=== PATIENT | female | born 1935 | race Caucasian/White ===

== ENCOUNTER 2017-01-30 15:33 | Emergency (ER) | payer MEDICARE ==
[2017-01-30 15:41] VITALS: BP 158/85; PULSE 101; RESP 14; O2SAT 96
--- NOTE | 2017-01-30 15:44 | ED.REPORT ---
HPI-Chest Pain 40 and Over Date of Service Jan 30, 2017 ED Provider: Dr. Ibrahim An 81 year old female with a history of undiagnosed baseline chronic abdominal pain presents to the ED via EMS complaining of elevated heart rate onset 1300 today. Her heart rate did not gone down after an hour since onset, so the patient decided to call EMS. Per EMS EKG the patient was tachycardic with heart rate of 113 en route. Per EMS report, the patient was Afib with RVR and a heart rate in the 100-170's en route. EMS administered O2 and 20mg diltiazem. She denies any pain ,nausea, diaphoresis, or anxiousness. She denies any feelings of heaviness or significant discomfort in her chest at this time. Additionally, she reports baseline intermittent feelings of heat and flushed red face that onset recently.The patient does have an inhaler and an emergency albuterol inhaler that she has not used in a few days. She takes a baby aspirin, but reports no history of heart problems and does not take any blood pressure or heart medications. The patient reports that they do not do a great job at staying well hydrated, but report that they have had two glasses of water this morning. Nursing Notes Stated Complaint: AFIB WITH RVR Chief Complaint: Chest Pain Nursing Notes Reviewed: Yes Allergies: Coded Allergies: codeine (Unverified Allergy, Intermediate, 01/30/17) Scheduled Metoprolol Succinate ER (Metoprolol Succinate ER) 25 Mg Tab.er.24h 25 MG PO DAILY General Time Seen by MD: 15:43 Chief Complaint Other (elevated heart rate) Hx Obtained From: Patient, EMS Arrived By: Ambulance Sudden in Onset?: Yes Onset Occurred: 1 - 4 hours ago (1300 today) Symptom Duration: Duration unknown Recent Healthcare: No recent doctor visit Similar Sx Previous: No Past Medical History Past Medical History baseline undiagnosed chronic abdominal pain Past Surgical History none reported Social History Other Social History: Good social support Ambulatory Status Independent Review of Systems Review of Systems Note: elevated heart rate. Denies chest pain or any other pain. Denies anxiousness. Cardiovascular: Denies: Chest pain (denies feelings of heaviness or signifigant discomfort in chest.) GI: Denies: Nausea Skin: Denies Diaphoresis Complete sys rev & neg: except as marked. Physical Exam Initial Vital Signs Vital Signs (First) Date Time Temp Pulse Resp B/P Pulse Ox O2 Delivery O2 Flow Rate FiO2 01/30/17 15:41 36.3 101 14 158/85 96 Room Air Initial VS: Reviewed Respiratory / Chest: Atraumatic, Breath sounds NL, Breath sounds = bilat, No respiratory distress, No rales, No rhonchi, No wheezing Cardiovascular: Regular rhythm, No murmurs Heart Rate / Rhythm: Positive: Tachycardia (borderline tachycarida with rate of 93) Abdomen: Atraumatic, Soft, Non-tender Neck: Atraumatic, Full range of motion Back: Atraumatic, Full range of motion Lower Extremity / Pelvis / MS: Atraumatic, No swelling Skin: Atraumatic, Color NL, Warm, Dry Neurologic: Oriented X3, Speech NL Head / Eyes: Atraumatic, Normocephalic, PERRL, EOMI ENT: Atraumatic, Mucous membranes moist Upper Extremity / MS: Atraumatic Wrist / Hand: Atraumatic, Full range of motion Ankle / Foot: Atraumatic, Full range of motion Interpretation & Diagnostics Lab Results Interpretation Result Diagram: 01/30/17 1725 01/30/17 1725 Test 01/30/17 16:20 01/30/17 17:25 Urine Color Yellow (YELLOW) Urine Appearance Clear (CLEAR,HAZY) Urine pH 7.5 (5.0-8.0) Urine Specific Helper 1.005 (1.003-1.035) Urine Protein Negativemg/dL (NEG,TRACE) Urine Glucose (UA) Negativemg/dL (NEGATIVE) Urine Ketones Negativemg/dL (NEGATIVE) Urine Occult Blood Negative (NEGATIVE) Urine Nitrite Negative (NEGATIVE) Urine Bilirubin Negative (NEGATIVE) Urine Urobilinogen Normalmg/dL (NORMAL) Urine Leukocyte Esterase Negative (NEGATIVE) Urine RBC 0-2/hpf (0-2) Urine WBC 0-5/hpf (0-5) Urine Epithelial Cells Occasional/hpf (NONE-MOD) Urine Crystals None seen (NONE SEEN) Urine Bacteria Few/hpf (NONE-FEW) Urine Hyaline Casts None/lpf (NONE) Urine Granular Casts None seen (NONE SEEN) Urine Waxy Casts None seen (NONE SEEN) Urine Red Blood Cell Casts None seen (NONE SEEN) Urine White Blood Cell Casts None seen (NONE SEEN) Urine Mucus None seen (None Seen) Urine Trichomonas None seen (NONE SEEN) Urine Yeast None (NONE SEEN) Urinalysis Comment None Hold Urine Received (Received) White Blood Count 7.9th/mm3 (3.8-10.1) Red Blood Count 4.92mil/mm3 (3.90-5.20) Hemoglobin 15.5g/dL (12.0-15.6) Hematocrit 46.1% (35.0-46.0) Mean Corpuscular Volume 93.7fL (81-100) Mean Corpuscular Hemoglobin 31.5pg (27.0-35.0) Mean Corpuscular Hemoglobin Concent 33.6% (32.0-37.0) Red Cell Distribution Width 13.2% (12.3-15.4) Platelet Count 213bil/L (150-400) Neutrophils (%) (Auto) 70.6% (40-74) Lymphocytes (%) (Auto) 16.7% (14-46) Monocytes (%) (Auto) 8.8% (4-12) Eosinophils (%) (Auto) 3.1% (0-5) Basophils (%) (Auto) 0.3% (0-3) Sodium Level 140mEq/L (134-144) Potassium Level 4.2mEq/L (3.5-5.2) Chloride Level 104mEq/L (97-108) Carbon Dioxide Level 21mmol/L (18-29) Blood Urea Nitrogen 12mg/dL (8-27) Creatinine 0.78mg/dL (0.57-1.00) Estimat Glomerular Filtration Rate 101mL/min (>59) Glucose Level 106mg/dL (60-99) Calcium Level 10.1mg/dL (8.5-10.1) Magnesium Level 2.2mg/dL (1.6-2.6) Total Bilirubin 0.5mg/dL (0.0-1.2) Aspartate Amino Transf (AST/SGOT) 35U/L (0-50) Alanine Aminotransferase (ALT/SGPT) 31U/L (0-32) Alkaline Phosphatase 88U/L (25-165) Troponin T < 0.010ug/L (0.0-0.011) Total Protein 6.6g/dL (6.4-8.4) Albumin 4.3g/dL (3.4-5.0) ECG Interpretation ECG Interpretation: Rate is 94. Sinus rhythm. No ST changes. Time: 15:45 Interpreted by: ED physician X-Ray Chest Interpretation Chest Xray Interpretation: IMPRESSION: No acute disease. Diffuse scarring/atelectasis Dictated by: Kwan Concepcion M.D. on 01/30/2017 at 16:22 Approved by: Kwan Concepcion M.D. on 01/30/2017 at 16:23 View: Portable, 1 view Re-Eval/Medical Decision Med Decision/Clinical Course 81-year-old female with no known history of atrial fibrillation presents after EMS reported A. fib with heart rate up to 170 that was successfully treated and resolved with diltiazem IV. Patient has been sinus rhythm since arriving at the ED. She has not had any chest pain. Troponin is negative. Metoprolol succinate 25 mg was given to the patient shortly after arrival and heart rate slowed from the 110s down to the 70s and 80s. Case discussed with Dr. Celeste who recommends that we continue the metoprolol 25 mg daily and have her follow-up with PCP. He did not feel at cardiology evaluation was needed urgently at this time. He recommended a full aspirin a day but given that this was the first and a very brief episode of atrial fibrillation (unconfirmed by our tests here, only reported by EMS), full anticoagulation is deferred to PCP after further investigation such as with Holter monitor. Chads2 score of 1 for age greater then 75. Patient feeling much better and comfortable going home. Patient and family understand and agree with the plan. Source of Hx: Old records, EMS Time of Eval: 16:24 Re-Evaluation/Progress Note: Rechecked patient, explained plan to administer diltiazem in the ED. Patient understands and agrees with the plan. Time of Eval: 17:48 Re-Evaluation/Progress Note: Rechecked patient. She reports no chest pain currently. She feels warm and has a flushed face, reporting that she has recently started experiencing these two symptoms together. She reports that she has not been put on any new medication recently. Time of Eval: 18:52 Re-Evaluation/Progress Note: Rechecked patient, explained test results, diagnosis and plan for discharge. Patient understands and agrees with the plan. Consultation : Referral / Consult Name: Chung Celeste MD Call Returned at: 18:21 Tower Cleaner: Agrees with eval, Agrees with plan Note: Discussed patient case with Dr. Celeste who recommends that she follow up with her PCP and get a referral a to cardiologsit if determined necessary. Counseled Regarding: Diagnosis, Lab results, Need for follow-up, When/why to return to ED Discharge & Departure Primary Impression: Tachycardia Additional Impression: Palpitations Disposition: Home Discharge Condition All VS Reviewed: Yes Condition: Improved Patient Instructions: Atrial Fibrillation (ED) Additional Instructions: Your emergency room evaluation today included an interview, physical exam, lab work, EKG, and chest x-ray. It was reported from EMS that you had an episode of atrial fibrillation at home with a heart rate up to 170. EMS gave you diltiazem 20 mg which lowered her heart rate and appears to have converted you back to sinus rhythm. Your EKG showed no concerning findings here. Your labs returned normal. We gave you metoprolol succinate 25 mg once here and I would like you to continue this once daily at home. You should also take a full aspirin (325 mg) once daily. Please follow-up with your PA for further evaluation and recheck which could include a Holter monitor and office EKG if necessary. You can also follow-up with cardiology if needed. There is a number below to contact our cardiologists. I spoke with Dr. Celeste a master yacht here who recommended cardiac follow-up if needed after recheck by your primary care provider, and did not feel that an urgent follow-up was necessary at this time. He agreed with the recommendations above. I expect you will do very well if you take the metoprolol daily. Referrals: Jennifer Mcnally (PCP) Nani Ronquillo MD (Family) Chung Celeste MD Scribe Attestation Portions of this note were transcribed by Ilan Koo. I, Dr. Ibrahim personally performed the history, physical exam and medical decision-making; I reviewed and confirmed the accuracy of the information in the transcribed note. Signed by: Jen Coleman, 01/30/2017 [id number]. copies to: Jennifer Mcnally; Nani Ronquillo MD, Gary R DO Jan 30, 2017 15:44 Ilan Koo Jan 30, 2017 16:00
[2017-01-30 16:14] VITALS: BP 138/81; PULSE 90; RESP 19; O2SAT 97
[2017-01-30] MEDS ORDERED: MeTOProlol XL 25 mg ER24 Tablet PO ONE (16:20)
--- NOTE | 2017-01-30 16:24 | DRSVH ---
PROCEDURE: X-RAY CHEST ONE VIEW, PORTABLE ([id number]) INDICATIONS: CHEST PAIN TECHNIQUE: One view of the chest was acquired. COMPARISON: [facility], RG, CHEST 2VW , 02/17/2006, 13:05. FINDINGS: Surgical changes and devices: None. Lungs and pleura: No pleural effusions or pneumothorax. Lungs are clear. There is diffuse scarring Mediastinum: Mediastinal contours appear normal. Heart size is normal. Bones and chest wall: No suspicious bony lesions. Overlying soft tissues appear unremarkable. IMPRESSION: No acute disease. Diffuse scarring/atelectasis Dictated by: Kwan Concepcion M.D. on 01/30/2017 at 16:22 Approved by: Kwan Concepcion M.D. on 01/30/2017 at 16:23
[2017-01-30 17:05] VITALS: BP 144/68; PULSE 92; RESP 26; O2SAT 97
[2017-01-30 17:38] LABS: BASOPHILS % (AUTO) 0.3 % (0-3); EOSINOPHILS % (AUTO) 3.1 % (0-5); MONOCYTES % (AUTO) 8.8 % (4-12); Mean Corpuscular Hemoglobin 31.5 pg (27.0-35.0); Mean Corpuscular Volume 93.7 fL (81-100); NEUTROPHILS % (AUTO) 70.6 % (40-74); Platelet Count 213 bil/L (150-400)
[2017-01-30 18:14] LABS: TROPONIN T < 0.010 ug/L (0.0-0.011)
[2017-01-30 18:25] LABS: Magnesium 2.2 mg/dL (1.6-2.6)
[2017-01-30 18:44] LABS: APPEARANCE,URINE CLEAR (CLEAR,HAZY); COLOR,URINE YELLOW (YELLOW); OCCULT BLOOD,URINE NEGATIVE (NEGATIVE); PH,URINE 7.5 (5.0-8.0); UROBILINOGEN,URINE NORMAL (NORMAL)
[2017-01-30] MEDS ORDERED: METO25TA99 PO (19:03)
[2017-01-30 19:08] VITALS: BP 153/69; PULSE 82; RESP 17; O2SAT 97
[2017-01-30 19:15] VITALS: BP 153/69; PULSE 82; RESP 17; O2SAT 97
[2017-05-10] MEDS ORDERED: BUDE10.2 INHALATION (13:34)
[2017-05-10] MEDS ORDERED: ALBU8.5H2 INHALATION (13:34)
[2017-05-10] MEDS ORDERED: METO25TA99 PO (13:34)
[2017-05-10] MEDS ORDERED: FLUT16SP NS (13:34)
[2017-05-10] MEDS ORDERED: CHOL200047 PO (13:34)
[2017-05-10] MEDS ORDERED: ACET325T51 PO (13:34)
[2017-05-10] MEDS ORDERED: UBID200C2 PO (13:34)
[2017-05-10] MEDS ORDERED: APIX5TAB PO (13:34)
[2017-05-10] MEDS ORDERED: IBUP-1827 PO (13:34)
[2017-05-10] MEDS ORDERED: CLOB15CR3 TOP (13:34)
[2017-05-10] MEDS ORDERED: OXYB5TAB PO (13:34)
[2017-05-10] MEDS ORDERED: LOVA40TA PO (13:34)
[2017-05-10] MEDS ORDERED: OMEP20CA11 PO (13:34)
== END 2017-01-30 19:15 | disposition home or self-care (01) ==
LOC: EDBD 15:33 → SED 15:33
DX: R00.0 Tachycardia, unspecified (principal); R00.2 Palpitations; Z88.5 Allergy status to narcotic agent

== ENCOUNTER 2017-05-11 00:41 | Day surgery (SDC) | payer MEDICARE ==
[~2017-05-11] VITALS: Ht 157.5 cm; Wt 68.0 kg
[~2017-05-11 00:41] MED LIST: ACET325T51 PO; ALBU8.5H2 INHALATION; APIX5TAB PO; BUDE10.2 INHALATION; CHOL200047 PO; CLOB15CR3 TOP; FLUT16SP NS; IBUP-1827 PO; LOVA40TA PO; METO25TA99 PO; OMEP20CA11 PO; OXYB5TAB PO; UBID200C2 PO
[2017-05-11] MEDS ORDERED: Propofol 10,000 mCg/mL 20 mL Inj ONE (00:42)
[2017-05-11] MEDS ORDERED: Lactated Ringer's 1,000 ML IV ONE (06:00)
[2017-05-11] MEDS ORDERED: Lactated Ringer's 1,000 ML IV SCH (07:09)
[2017-05-11 08:57] VITALS: BP 147/85; PULSE 83; RESP 16; O2SAT 97
--- NOTE | 2017-05-11 09:38 | PCM.HPANE ---
Patient Data Surgeon Admitting Provider: Attending Provider:Kulwinder Mireles MD Primary Care Physician:Jennifer Mcnally Other Provider:Torie David Anesthesia Reason for Visit Positive Colorectal Ca Screen Ht/WT & BMI Height (Feet): 5 Height (Inches): 2 Weight (Kilograms): 68.04 Body Mass Index 27.00 Allergies Coded Allergies: codeine (Verified Allergy, Intermediate, 05/10/17) Past Anesthesia History Anesthesia History: Denies:: Abnormal Airway, Anesthesia Reactions, Difficult Intubation, Fam Anesthesia Reaction, Fam Malignant Hypertherm, Malignant Hyperthermia Diabetes History Hx Diabetes?: No MRSA MRSA: No Medications Last Dose Blood Thinner: May 15, 2017 Reported Medications Acetaminophen 325 Mg Anbpha785 Mg PO Q4H PRN For Fever Ref 0 05/10/17 Cholecalciferol (Vitamin D3) (Vitamin D3)2,000 Unit Capsule2,000 Unit PO DAILY 05/10/17 Budesonide/Formoterol 80-4.5 mcg Inh (Symbicort 80-4.5 mcg Inh)120 Puff Inhaler2 Puff INHALATION BID #1 INHALER Ref 0 05/10/17 Albuterol HFA (Proair HFA)8.5 Gm Hfa.aer.ad2 Puffs INHALATION Q4H #1 INHALER 05/10/17 Oxybutynin Chloride ER 5 Mg Tab.er.245 Mg PO DAILY Ref 0 05/10/17 Metoprolol Succinate ER 25 Mg Tab.er.24h25 Mg PO DAILY Ref 0 05/10/17 Lovastatin 40 Mg Bpljic72 Mg PO HS #30 TABLET Ref 0 05/10/17 Ibuprofen 600 Mg [id number] Mg PO QID PRN For Pain Ref 0 05/10/17 Fluticasone Propionate (Fluticasone Propionate Nasal)16 Gm [place].susp2 [place] NS BID #16 GM Ref 0 05/10/17 Apixaban (Eliquis)5 Mg Tablet5 Mg PO BID 05/10/17 Ubidecarenone (Co Q-10)200 Mg Rcdvclp615 Mg PO DAILY 05/10/17 Clobetasol Propionate/Emoll (Clobetasol Emollient 0.05% Crm)15 Gm Cream..g.1 Appl TOP BID #1 TUBE 05/10/17 Discontinued Reported Medications Omeprazole 20 Mg Capsule.dr20 Mg PO DAILY Ref 0 05/10/17 Discontinued Scripts Metoprolol Succinate ER 25 Mg Tab.er.24h25 Mg PO DAILY #30 TABLET Ref 0 Prov:Danny Ibrahim DO 01/30/17 Last Time Dose Received Stopped elijose alberto x 4 dd Took metoprolol today History History of ENT Problems?: No HEENT History: Denies:: Abnormal Airway Difficult Intubation Hearing Problem Denture Type: None Teeth Condition: Within Normal Limits Hx of Heart Problems?: Yes Cardiovascular History: Positive for:: Atrial Fibrillation (metropolol) Denies:: Congestive Heart Failure Hypertension Other History/Comments PAF - TTE and stress test unremarkable. Hx of Respiratory Problem?: Yes Respiratory History: Positive for:: Pneumonia Tuberculosis Other Resp Pertinent History: Hx of lung bx Other History/Comment COPD - breathing at baseline Hx Neurologic Problems?: No Neurological History: Denies:: CVA Hx of GI Problems?: Yes Hx of Problems?: No Genitourinary History: Denies:: HX of Hemodialysis Kidney Stones Urinary Tract Infection Hx Musculoskeletal Problems?: Yes Musculoskeletal History: Positive for:: Degenerative Joint Hx Surgeries?: Yes (tania, tonsil, hyst, lung bx, ) Hx Any Other Health Problems?: Yes Hx Diabetes: No Hx Alcohol Use: YesHx Substance Use: No Smoking Status: Never Smoker Stop/Bang Treated for Sleep Apnea?: Yes Do You Have a CPAP Machine?: Yes Risk Assessment Category Category 1A: Patient has history of documented sleep apnea, and HAS NOT received any narcotic, sedative or anesthesia administration during this stay. Category 1B: Patient has history of documented sleep apnea, and HAS received any narcotic , sedative or anesthesia administration during this stay Category 2: Patient has SUSPECTED Obstructive Sleep Apnea, and HAS received any narcotic , sedative or anesthesia administration during this stay. Category 3: Patient has SUSPECTED Obstructive Sleep Apnea and HAS NOT received narcotic, sedative or anesthesia administration during this stay. Category 4: Outpatient in Procedural Areas with known sleep apnea or who screen positive for High Risk via the STOP/BANG questionnaire. Exam Exam Vital Signs Vital Signs Date Time Temp Pulse Resp B/P Pulse Ox O2 Delivery O2 Flow Rate FiO2 05/11/17 08:57 36.2 83 16 147/85 97 Room Air General Appearance: Alert, Oriented X3 HEENT/AIRWAY: MP 2, Neck Movement (neck stiffness) Lungs: Clear to Auscultation, Clear to Percussion Heart: Exam Unremarkable, Regular Rate/Rhythm Plan Impression Patient chart reviewed, patient interviewed and anesthestic plan with risks, benefits, and alternatives discussed, and informed consent obtained. ASA Physical Status: ASA2 Mod Systemic Disease Anesthetic Plan: MAC Bene/Risks/Altern/Consents: Yes HP Complete Prior to Induction: Yes Benny Craven MD May 11, 2017 09:38
[2017-05-11 10:03] VITALS: BP 108/65; PULSE 72; RESP 16; O2SAT 96
--- NOTE | 2017-05-11 10:04 | PCM.ANEP1 ---
Post Anesthesia PACU Phase 1 Assessment Vital Signs Vital Signs Date Time Temp Pulse Resp B/P Pulse Ox O2 Delivery O2 Flow Rate FiO2 05/11/17 08:57 36.2 83 16 147/85 97 Room Air Anesthetic Administered: MAC Level of Alertness: Awake, talking CHACON's with Equal Strength: Yes Pain: No Nausea or Vomiting: No CV Function & Hydration Stable: Yes Airway Device: Oxygen Delivery: Room Air Lungs: Clear to Auscultation, Clear to Percussion PACU Phase 2 Assessment Complications: No Follow up Care: No Patient Instructions Provided: N/A Benny Craven MD May 11, 2017 10:04
[2017-05-11 10:10] VITALS: BP 114/69; PULSE 79; RESP 16; O2SAT 98
[2017-05-11 10:22] VITALS: BP 123/64; PULSE 76; RESP 16; O2SAT 98
--- NOTE | 2017-05-11 10:26 | ENDO ---
[address] [address] ENDOSCOPY PROCEDURE PATIENT: NELSON SIMMONS : 1935 MR#: [id number] ADMIT: 05/11/2017 JOB ID: [id number] DATE OF SERVICE: 05/11/2017 TYPE OF OPERATION: Colonoscopy and biopsy. PREOPERATIVE DIAGNOSIS(ES): 1. Positive fecal immunochemical test. 2. History of colon polyps. POSTOPERATIVE DIAGNOSIS(ES): 1. A 2 mm sigmoid polyp, removed by cold biopsy forceps. 2. Moderate sigmoid diverticulosis. 3. Moderate internal hemorrhoids. ANESTHESIA: Monitored anesthesia care. COMPLICATION: None. ESTIMATED BLOOD LOSS: Minimal. DESCRIPTION OF PROCEDURE: After risks and benefits, the patient informed consent was obtained. After anesthesia administered, colonoscope was inserted from the rectum to cecum. Mucosa carefully examined. Prep of the patient was excellent. After procedure was done, the scope withdrawn, procedure terminated. FINDINGS: Upon inspection of the anus, no masses, hemorrhoids, ulcers, or fissures that were seen throughout the entire examination. There was a 2 mm sigmoid polyp, removed by cold biopsy forceps. There was also moderate sigmoid diverticulosis. No polyps, masses were seen. Retroflexion showed moderate internal hemorrhoids. IMPRESSION: 1. Mild internal hemorrhoids. 2. A 2 mm sigmoid polyp removed by cold biopsy forceps. 3. Moderate sigmoid diverticulosis. RECOMMENDATION: 1. Await pathology results. 2. High-fiber diet. 3. Repeat colonoscopy in five years.
--- NOTE | 2017-05-12 16:47 | PATH ---
SURGICAL PATHOLOGY Attending Physician:Kulwinder Mireles MD CASE STATUS: Signed Out PATIENT NAME: NELSON SIMMONS PID: [id number] : 1935 DATE COLLECTED:05/11/2017 17:09 SPECIMEN: Colon, Polyp CLINICAL HISTORY: 1. SIGMOID COLON POLYP X1 FINAL DIAGNOSIS: 1.SIGMOID COLON POLYP, BIOPSY: PORTION OF TUBULAR ADENOMA X1; NEGATIVE FOR HIGH-GRADE DYSPLASIA. SUPERFICIAL PORTIONS OF COLORECTAL MUCOSA X3 WITH AN OCCASIONAL PROMINENT LYMPHOID AGGREGATE, FOCAL, MILD MUCOSAL HYPERPLASTIC CHANGE, AND OTHERWISE NO DIAGNOSTIC ABNORMALITY. ICD10 K63.5 GROSS DESCRIPTION: The specimen is received in one formalin filled container labeled with the patient's name, sublabeled "sigmoid colon polyp" and consists of 4 portions of tissue which aggregate to 1-0.2 x 0.2 CM. The specimen is entirely submitted in one cassette. 05/11/2017 DAC MICRO DESCRIPTION: See diagnosis. ICD-9 CODES: CPT CODES: 1: 51275 Electronically Signed Out Sandra Levy MD [facility] [address], [place] [address] Technical component performed at [facility], [address] [place] [address] Ave[address], [place], [address]
== END 2017-05-11 23:59 | disposition home or self-care (01) ==
LOC: SAS 00:41
PROVIDERS: ATTEND Internal Medicine Gastroenterology
DX: D12.5 Benign neoplasm of sigmoid colon (principal); K57.30 Diverticulosis of large intestine without perforation or abscess without bleeding; K64.8 Other hemorrhoids; J47.9 Bronchiectasis, uncomplicated; G47.33 Obstructive sleep apnea (adult) (pediatric); Z79.01 Long term (current) use of anticoagulants; Z83.71 Family history of colonic polyps; I48.0 Paroxysmal atrial fibrillation; E78.5 Hyperlipidemia, unspecified
CPT/HCPCS: 45380; 88305; J7120